=== PATIENT | male | born 1965 | race Caucasian/White ===

== ENCOUNTER 2025-05-06 15:32 | Emergency (ER) | payer BC, OTHER ==
[2025-05-06] MEDS ORDERED: Bacitracin 1 PK ONE (15:52)
[2025-05-06] MEDS ORDERED: Lidocaine 1% (PF) 30 ML VIAL ONE (15:52)
== END 2025-05-06 16:30 | disposition home or self-care (01) ==
LOC: NAV ERS 15:32
DX: S61.012A Laceration without foreign body of left thumb without damage to nail, initial encounter (principal); I10 Essential (primary) hypertension; F17.210 Nicotine dependence, cigarettes, uncomplicated; Z23 Encounter for immunization; W23.0XXA Caught, crushed, jammed, or pinched between moving objects, initial encounter
CPT/HCPCS: 12042; 90471; 90715; J2003